=== PATIENT | male | born 1995 | race Caucasian/White ===

== ENCOUNTER 2017-11-12 08:42 | Emergency (ER) | payer BC, OTHER ==
--- NOTE | 2017-11-12 09:42 | UC ---
Throat Pain/Nasal Jacques HPI - HPI Summary HPI Summary: 22 yo male presents with b/l earache, sinus pain/pressure/congestion, sore throat, dry cough, and body aches for the last 2 days. Today he noticed he had a fever. Has been taking claritin and an OTC cold and flu medication with no relief. He says he feels a little nauseous today as well. Denies chills, SOB, chest pain, abdominal pain, vomiting, diarrhea, or dysuria. He is still smoking daily - History of Current Complaint Chief Complaint: UCRespiratory Stated Complaint: CONGESTED,SORE THROAT Time Seen by Provider: 11/12/17 09:41 Hx Obtained From: Patient Onset/Duration: Gradual Onset Severity: Moderate Pain Intensity: 6 Pain Scale Used: 0-10 Numeric Cough: Nonproductive - Allergies/Home Medications Allergies/Adverse Reactions: Allergies Allergy/AdvReac Type Severity Reaction Status Date / Time Penicillins Allergy Swelling Verified 11/12/17 08:55 Home Medications: Home Medications Aspirin/Acetaminophen/Caffeine [Excedrin Migraine Caplet] 1 tab PO DAILY PRN [History Confirmed 11/12/17] D-Methorphan/PE/Acetaminophen [Gnp Day Time Cold/Flu Rel] 1 liq PO DAILY PRN [History Confirmed 11/12/17] PMH/Surg Hx/FS Hx/Imm Hx - Additional Past Medical History Additional PMH: None Previously Healthy: Yes - Surgical History Surgical History: Yes Surgery Procedure, Year, and Place: LEFT CLAVICAL 2010 - Family History Known Family History: Positive: None - Social History Occupation: Employed Full-time Lives: With Family Alcohol Use: None Substance Use Type: Marijuana Substance Use Comment - Amount & Last Used: occasional Smoking Status (MU): Light Every Day Tobacco Smoker Type: Cigarettes Amount Used/How Often: 3 sig/day When Did the Patient Quit Smoking/Using Tobacco: 2 months ago Household Exposure Type: Cigarettes Review of Systems Constitutional: Fever, Fatigue, Other - Body aches Skin: Negative Eyes: Negative ENT: Sore Throat, Ear Ache, Nasal Discharge, Sinus Congestion, Sinus Pain/ Tenderness Respiratory: Cough Cardiovascular: Negative Gastrointestinal: Nausea Genitourinary: Negative Neurovascular: Negative Neurological: Negative Psychological: Negative All Other Systems Reviewed And Are Negative: Yes Physical Exam - Summary Physical Exam Summary: GENERAL: NAD. WDWN. No pain distress. SKIN: No rashes, sores, lesions, or open wounds. HEENT: Head: AT/NC Eyes: EOM intact. Conjunctiva clear without inflammation or discharge. Ears: Hearing grossly normal. B/L TM with mild erythema. No bulging. No canal edema or drainage. Nose: Nasal mucosa mildly swollen and erythematous with yellow/ clear discharge. TTP maxillary < frontal sinus. Throat: Posterior oropharynx without exudates, erythema, or tonsillar enlargement. Uvula midline. NECK: Supple. Nontender. No lymphadenopathy. CHEST: CTAB. No r/r/w. No accessory muscle use. Breathing comfortably and in no distress. CV: RRR. Without m/r/g. Pulses intact. NEURO: Alert. CN II-XII grossly intact. PSYCH: Age appropriate behavior. Triage Information Reviewed: Yes Vital Signs: Initial Vital Signs Temp 100.9 F 11/12/17 08:50 Pulse 89 11/12/17 08:50 Resp 16 11/12/17 08:50 BP 142/69 11/12/17 08:50 Pulse Ox 99 11/12/17 08:50 Laboratory Tests 11/12/17 10:10 Group A Strep Rapid Negative Vital Signs Reviewed: Yes Throat Pain/Nasal Course/Dx - Course Course Of Treatment: CXR: IMPRESSION: NO ACTIVE CARDIOPULMONARY DISEASE. POC strep negative. Suspect sinusitis vs viral illness. Will rx for zpak and zofran and have him f/u if symptoms worsen or persist. - Differential Dx/Diagnosis Provider Diagnoses: Sinusitis Discharge - Sign-Out/Discharge Documenting (check all that apply): Patient Departure All imaging exams completed and their final reports reviewed: Yes - Discharge Plan Condition: Stable Disposition: HOME Prescriptions: Azithromycin TAB* [Zithromax TAB (Z-JAYDEN) 250 mg #6 tabs] 2 tab PO .TODAY, THEN 1 DAILY #1 jayden Ondansetron ODT TAB* [Zofran 4 MG Odt TAB*] 4 mg PO BID PRN #10 tab.odt PRN Reason: Nausea Patient Education Materials: Sinusitis (ED) Forms: *Work Release Referrals: No Primary Care Phys,NOPCP [Primary Care Provider] - Additional Instructions: If you develop a fever, shortness of breath, chest pain, new or worsening symptoms - please call your PCP or go to the ED. Your blood pressure was high at todays visit. Please see your primary provider within 4 weeks for recheck and re-evaluation. - Billing Disposition and Condition Condition: STABLE Disposition: Home
--- NOTE | 2017-11-12 10:42 | RAD ---
HISTORY: cough COMPARISONS: August 10, 2013 VIEWS: 4: Frontal dual-energy and lateral views of the chest. FINDINGS: CARDIOMEDIASTINAL SILHOUETTE: The cardiomediastinal silhouette is normal. JAMIR: The jamir are normal. PLEURA: The costophrenic angles are sharp. No pleural abnormalities are noted. LUNG PARENCHYMA: The lungs are clear. ABDOMEN: The upper abdomen is clear. There is no subphrenic gas. BONES AND SOFT TISSUES: No bone or soft tissue abnormalities are noted. OTHER: None. IMPRESSION: NO ACTIVE CARDIOPULMONARY DISEASE.
[2017-11-12 11:01] VITALS: BP 142/71
== END 2017-11-12 11:02 | disposition home or self-care (01) ==
LOC: UCEAST 08:42
DX: J32.9 Chronic sinusitis, unspecified (principal); F17.210 Nicotine dependence, cigarettes, uncomplicated; Z88.0 Allergy status to penicillin
CPT/HCPCS: 71046; 87651; 99212; G0463

== ENCOUNTER 2017-11-18 14:27 | Emergency (ER) | payer SELFPAY ==
[2017-11-18 14:51] VITALS: BP 118/68
[2017-11-18] MEDS ORDERED: Phenylephrine 1% NASAL* 15 ML BOT BOTH NARES ONE (14:52)
--- NOTE | 2017-11-18 15:17 | UC ---
Epistaxis Nasal HPI - HPI Summary HPI Summary: Pt is a 22 year old male presenting to the with a chief complaint of an epistaxis. The pt says that he woke up around 800 this morning, and while he was getting ready it started suddenly bleeding only on his R side, then it subsided for a while. Around 1030, he was in [employer], and his R nare started bleeding again, and then spread to both sides. The pt denies any nose trauma. The pt is currently not on medications. The pt has a prehypertensive blood pressure, and has had clavicle surgery in the past. He drinks EtOH occasionally , smokes about 3-4 cigarettes on a daily basis, occasionally uses marijuana. The pt has a hx of occasional nosebleeds. - History of Current Complaint Chief Complaint: UCGeneralIllness Stated Complaint: NOSE BLEED Hx Obtained From: Patient Onset/Duration: Sudden Onset, Lasting Hours, Still Present - mildly Timing: Hours - began this morning Severity Initially: Mild Severity Currently: Mild Pain Intensity: 2 Pain Scale Used: 0-10 Numeric Alleviating Factor(s): Pressure - Allergies/Home Medications Allergies/Adverse Reactions: Allergies Allergy/AdvReac Type Severity Reaction Status Date / Time Penicillins Allergy Swelling Verified 11/18/17 16:49 PMH/Surg Hx/FS Hx/Imm Hx Previously Healthy: No Endocrine History: Other Other Endocrine History: pre-hypertensive blood pressure Respiratory History: Other Other Respiratory History: occasional nosebleeds - Surgical History Surgical History: Yes Surgery Procedure, Year, and Place: LEFT CLAVICAL 2010 - Family History Known Family History: Negative: Hypertension, Diabetes - Social History Lives: With Family Alcohol Use: None Substance Use Type: Marijuana Substance Use Comment - Amount & Last Used: occasional Smoking Status (MU): Light Every Day Tobacco Smoker Type: Cigarettes Amount Used/How Often: 3 cig/day Have You Smoked in the Last Year: Yes When Did the Patient Quit Smoking/Using Tobacco: 2 months ago Household Exposure Type: Cigarettes Review of Systems Constitutional: Negative - fever ENT: Epistaxis All Other Systems Reviewed And Are Negative: Yes Physical Exam - Summary Physical Exam Summary: Appearance: Well-appearing, Well-nourished Skin: Warm Eyes: Normal ENT: Small amt blood in bilateral nares. No oropharyngeal blood. Neck: Supple, nontender Respiratory: Clear to auscultation Cardiovascular: Normal S1, S2. No murmurs. Normal distal pulses in tibial and radial bilaterally. Abdomen: Soft, nontender Musculoskeletal: Normal, Strength/ROM Intact Neurological: Normal, A&Ox3 Psychiatric: Normal General: No acute distress Triage Information Reviewed: Yes Vital Signs: Initial Vital Signs Temp 98.4 F 11/18/17 14:46 Pulse 80 11/18/17 14:46 Resp 16 11/18/17 14:46 BP 118/68 11/18/17 14:46 Pulse Ox 95 11/18/17 14:46 Vital Signs Reviewed: Yes Procedures - Procedure Summary Procedure Summary: 1515 right-sided nasal packing using Merocel. Initially successful, however bleeding persisted. Patient tolerated procedure well without occasions. Blood seen to be soaked throughout the dressing. Re-Evaluation - Re-Evaluation 1 Change: Unchanged Comment: Pt now complains of pain on the whole R side of his face and in bilateral ears. The bleeding is continuous, there is no bleeding orally. His sinus is getting currently blocked up. Epistaxis Nasal Course/Dx - Course Course Of Treatment: Patient has persistent right-sided epistaxis despite nasal packing, instructed to report to the emergency department immediately for further care and evaluation for possible posterior bleed vital signs stable, neurologically intact, understands instructions. - Differential Dx/Diagnosis Provider Diagnoses: epistaxis Discharge - Sign-Out/Discharge Documenting (check all that apply): Patient Departure All imaging exams completed and their final reports reviewed: No Studies - Discharge Plan Condition: Stable Disposition: HOME-RECOMMEND TO ED Patient Education Materials: Nosebleed (ED) Referrals: No Primary Care Phys,NOPCP [Primary Care Provider] - Additional Instructions: PLEASE GO STRAIGHT TO EMERGENCY DEPARTMENT AT [facility] - Billing Disposition and Condition Condition: STABLE Disposition: Home-Recommend to ED - Attestation Statements Document Initiated by Scribe: Yes Documenting Scribe: Brandie Castro Provider For Whom Pardeep is Documenting (Include Credential): Jaswinder Driver MD. Scribe Attestation: Brandie Sanchez scribed for Jaswinder Driver MD. on 11/18/17 at 2006. Scribe Documentation Reviewed: Yes Provider Attestation: The documentation as recorded by the Brandie bourne accurately reflects the service I personally performed and the decisions made by Jaswinder desai MD. Consult Consult: 1550 - Consultation with SUN Grimaldo from [facility] about transferring the pt to the ED. They will be accepting him.
== END 2017-11-18 15:55 | disposition home health service (06) ==
LOC: UCEAST 14:27
DX: R04.0 Epistaxis (principal); F17.210 Nicotine dependence, cigarettes, uncomplicated; Z88.0 Allergy status to penicillin
CPT/HCPCS: 30901; 99212; A9270-GY; G0463

== ENCOUNTER 2017-11-18 16:11 | Emergency (ER) | payer SELFPAY ==
[2017-11-18] MEDS ORDERED: Oxymetazoline 0.05% NASAL SPR* 15 ML BTL ONE (17:06)
--- NOTE | 2017-11-18 17:16 | ED ---
Throat Pain/Nasal Congestion - HPI Summary HPI Summary: Pt is a 22 y/o male sent from who presents to [facility] c/o epistaxis. He began having his bilateral nose bleed this morning at 10:30 while walking to [facility], which then became only right sided. He had his right nare packed at the , which he states is very uncomfortable and is making his ear and head hurt. He is slightly hypertensive but is not on medications. He describes the pain as a 6 /10 in severity and aching. - History of Current Complaint Chief Complaint: EDEpistaxis Time Seen by Provider: 11/18/17 17:01 Hx Obtained From: Patient Onset/Duration: Sudden Onset, Lasting Hours - 10:30, Still Present Severity: Moderate Associated Signs And Symptoms: Positive: Nasal Discharge - Epistaxis Cough: None - Allergies/Home Medications Allergies/Adverse Reactions: Allergies Allergy/AdvReac Type Severity Reaction Status Date / Time Penicillins Allergy Swelling Verified 11/18/17 16:49 PMH/Surg Hx/FS Hx/Imm Hx Endocrine/Hematology History: Denies: Hx Diabetes, Hx Thyroid Disease Cardiovascular History: Denies: Hx Congestive Heart Failure, Hx Hypertension, Hx Pacemaker/ICD Respiratory History: Denies: Hx Asthma, Hx Chronic Obstructive Pulmonary Disease (COPD) GI History: Denies: Hx Ulcer History: Denies: Hx Dialysis, Hx Renal Disease Musculoskeletal History: Reports: Other Musculoskeletal History - 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 Sensory History: Denies: Hx Hearing Aid Psychiatric History: Denies: Hx Panic Disorder - Surgical History Surgery Procedure, Year, and Place: LEFT CLAVICAL 2010 - Immunization History Immunizations Up to Date: Yes Infectious Disease History: No Infectious Disease History: Denies: Hx Hepatitis, Hx Human Immunodeficiency Virus (HIV), Traveled Outside the [place] in Last 30 Days - Family History Known Family History: Negative: Hypertension, Diabetes - Social History Alcohol Use: None Hx Substance Use: Yes Substance Use Type: Reports: Marijuana Substance Use Comment - Amount & Last Used: occasional Hx Tobacco Use: Yes Smoking Status (MU): Light Every Day Tobacco Smoker Type: Cigarettes Amount Used/How Often: 3 cig/day Have You Smoked in the Last Year: Yes Review of Systems Negative: Fever Positive: Epistaxis All Other Systems Reviewed And Are Negative: Yes Physical Exam - Summary Physical Exam Summary: Appearance: Well appearing, no pain distress Skin: warm, dry, reflects adequate perfusion Head/face: normal Eyes: EOMI, BRIANA ENT: bleeding from right nostril, no active bleeding of posterior pharynx Neck: supple, non-tender Respiratory: CTA, breath sounds present Cardiovascular: RRR, pulses symmetrical Abdomen: non-tender, soft Bowel: present Musculoskeletal: normal, strength/ROM intact Neuro: normal, sensory motor intact, A&Ox3 Triage Information Reviewed: Yes Vital Signs On Initial Exam: Initial Vitals Temp Pulse Resp BP Pulse Ox 98.4 F 80 18 140/86 98 11/18/17 16:22 11/18/17 16:22 11/18/17 16:22 11/18/17 16:22 11/18/17 16:22 Vital Signs Reviewed: Yes Procedures - Procedure Summary Procedure Summary: Right nostril nasal rocket with Afrin and Lidocaine. Diagnostics - Vital Signs Vital Signs Temp Pulse Resp BP Pulse Ox 11/18/17 16:22 98.4 F 80 18 140/86 98 - Laboratory Result Diagrams: 11/18/17 17:29 11/18/17 17:29 Lab Statement: Any lab studies that have been ordered have been reviewed, and results considered in the medical decision making process. EENT Course/Dx - Course Course Of Treatment: Pt is a 22 y/o male sent from who presents to [facility] c/o epistaxis. He began having his bilateral nose bleed this morning at 10:30, which then became only right sided. He had his right nare packed at the , which he states is very uncomfortable and is making his ear and head hurt. He is slightly hypertensive but is not on medications. He describes the pain as a 6 /10 in severity and aching. A physical exam revealed bleeding from right nostril , no active bleeding of posterior pharynx. A right nostril nasal rocket procedure was performed. Final dx is epistaxis. Pt is discharged and to follow up with ENT tomorrow. Pt is agreeable with this plan. - Diagnoses Provider Diagnoses: Epistaxis Discharge - Sign-Out/Discharge Documenting (check all that apply): Patient Departure - Discharge - Discharge Plan Condition: Stable Disposition: HOME Prescriptions: Sulfamethox/Trimethoprim DS* [Bactrim DS 800/160 TAB*] 1 tab PO BID #14 tab Patient Education Materials: Nosebleed (ED) Referrals: [facility] [Outside] Miles Javier MD [Medical Doctor] - 1 Day Additional Instructions: RETURN TO THE ED WITH ANY NEW OR WORSENING SYMPTOMS. - Billing Disposition and Condition Condition: STABLE Disposition: Home - Attestation Statements Document Initiated by Scribe: Yes Documenting Scribe: Gissel Rhodes Provider For Whom Scribe is Documenting (Include Credential): Barry Ashley MD Scribe Attestation: Gissel Sanchez scribed for Barry Ashley MD on 11/18/17 at 1839. Scribe Documentation Reviewed: Yes Provider Attestation: The documentation as recorded by the Gissel bourne accurately reflects the service I personally performed and the decisions made by , Barry Ashley MD
[2017-11-18 17:35] LABS: ABS Basophils 0.1 10^3/ul (0-0.2); ABS Eosinophils 0.3 10^3/ul (0-0.6); ABS Lymphocytes 1.4 10^3/ul (1.0-4.8); ABS Monocytes 0.7 10^3/ul (0-0.8); ABS Neutrophils 9.3 10^3/ul (1.5-7.7); ABS Nucleated RBC 0 10^3/ul; Eosinophil % 2.5 % (0-6); Hematocrit 42 % (42-52); Hemoglobin 14.1 g/dl (14.0-18.0); Lymphocyte % 11.9 % (25-47); Mean Corpuscular HGB Conc 34 g/dl (31-36); Mean Corpuscular Hemoglobin 31 pg (27-31); Mean Corpuscular Volume 90 fL (80-94); Mean Platelet Volume 8.1 um3 (7.4-10.4); Nucleated Red Blood Cells % 0.1; Platelet Count 398 10^3/ul (150-450); Red Blood Count 4.62 10^6/ul (4.00-5.40); Red Cell Distribution Width 13 % (10.5-15); White Blood Count 11.8 10^3/ul (3.5-10.8)
[2017-11-18 17:50] LABS: INR 1.09 (0.77-1.02)
[2017-11-18 17:59] LABS: EGFR Non-African American 97.4 (>60)
[2017-11-18 18:30] VITALS: BP 120/67
== END 2017-11-18 18:29 | disposition home or self-care (01) ==
LOC: ED 16:11
DX: R04.0 Epistaxis (principal); Z88.0 Allergy status to penicillin; F17.210 Nicotine dependence, cigarettes, uncomplicated
CPT/HCPCS: 30901; 36415; 80053; 85025; 85610; 85730; 99282; A9270-GY

== ENCOUNTER 2017-11-19 01:36 | Emergency (ER) | payer SELFPAY ==
--- NOTE | 2017-11-19 02:23 | ED ---
Throat Pain/Nasal Congestion - HPI Summary HPI Summary: A 22 y/o male presents to ED c/o epistaxis reaching 4/10 in severity. Currently , the patient is bleeding from both sides of his nostrils. In the ED room, the patient has a pulse of 88 BPM, O2 saturation of 96% and blood pressure of 128/ 76. As per triage, "Pt c/o nosebleed since earlier tonight. Pt seen in this ED and rhino rocket placed. Bleeding not controlled at this time". According to the patient, he was in [facility] earlier today for epistaxis on the right side and it stopped for a bit, however, now he is bleeding on both sides of his nose. He noted that he went to earlier, but then came here. He stated that blood is "pouring down his throat". - History of Current Complaint Chief Complaint: EDEpistaxis Time Seen by Provider: 11/19/17 02:13 Hx Obtained From: Patient Onset/Duration: Sudden Onset, Lasting Hours, Still Present, Worse Since Severity: Moderate - 4/10 Cough: None - Allergies/Home Medications Allergies/Adverse Reactions: Allergies Allergy/AdvReac Type Severity Reaction Status Date / Time Penicillins Allergy Swelling Verified 11/19/17 01:44 PMH/Surg Hx/FS Hx/Imm Hx Endocrine/Hematology History: Denies: Hx Diabetes, Hx Thyroid Disease Cardiovascular History: Denies: Hx Congestive Heart Failure, Hx Hypertension, Hx Pacemaker/ICD Respiratory History: Denies: Hx Asthma, Hx Chronic Obstructive Pulmonary Disease (COPD) GI History: Denies: Hx Ulcer History: Denies: Hx Dialysis, Hx Renal Disease Musculoskeletal History: Reports: Other Musculoskeletal History - 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 Sensory History: Denies: Hx Hearing Aid Psychiatric History: Denies: Hx Panic Disorder - Surgical History Surgery Procedure, Year, and Place: LEFT CLAVICAL 2010 Infectious Disease History: No Infectious Disease History: Denies: Hx Hepatitis, Hx Human Immunodeficiency Virus (HIV), Traveled Outside the [place] in Last 30 Days - Family History Known Family History: Negative: Hypertension, Diabetes - Social History Alcohol Use: None Hx Substance Use: Yes Substance Use Type: Reports: Marijuana Substance Use Comment - Amount & Last Used: occasional Hx Tobacco Use: Yes Smoking Status (MU): Light Every Day Tobacco Smoker Type: Cigarettes Amount Used/How Often: 3 cig/day Have You Smoked in the Last Year: Yes Review of Systems Negative: Fever Positive: Epistaxis - Both sides All Other Systems Reviewed And Are Negative: Yes Physical Exam - Summary Physical Exam Summary: VITAL SIGNS: Reviewed. GENERAL: Patient is a well-developed and nourished male who is lying comfortable in the stretcher. Patient is not in any acute respiratory distress. HEAD AND FACE: No signs of trauma. No ecchymosis, hematomas or skull depressions. No sinus tenderness. EYES: PERRLA, EOMI x 2, No injected conjunctiva, no nystagmus. EARS: Hearing grossly intact. Ear canals and tympanic membranes are within normal limits. MOUTH: Oropharynx within normal limits. NOSE: Rhinorrhea of left nostril with no active bleeding. Does have some oozing. Rhinorocket right nostril. NECK: Supple, trachea is midline, no adenopathy, no JVD, no carotid bruit, no c- spine tenderness, neck with full ROM. CHEST: Symmetric, no tenderness at palpation LUNGS: Clear to auscultation bilaterally. No wheezing or crackles. CVS: Regular rate and rhythm, S1 and S2 present, no murmurs or gallops appreciated. ABDOMEN: Soft, non-tender. No signs of distention. No rebound no guarding, and no masses palpated. Bowel sounds are normal. EXTREMITIES: FROM in all major joints, no edema, no cyanosis or clubbing. NEURO: Alert and oriented x 3. No acute neurological deficits. Speech is normal and follows commands. SKIN: Dry and warm Triage Information Reviewed: Yes Vital Signs On Initial Exam: Initial Vitals Temp Pulse Resp BP Pulse Ox 98.2 F 92 18 128/78 96 11/19/17 01:42 11/19/17 01:42 11/19/17 01:42 11/19/17 01:42 11/19/17 01:42 Vital Signs Reviewed: Yes Procedures - Laceration/Wound Repair Nostrils Location: face - Nose Length, Depth and Shape: Old Rhinorocket was removed from left nostril. 4.5 cm rhinorockets were used in both nostrils. Each nostril had good hemostasis. Diagnostics - Vital Signs Vital Signs Temp Pulse Resp BP Pulse Ox 11/19/17 01:42 98.2 F 92 18 128/78 96 - Laboratory Lab Statement: Any lab studies that have been ordered have been reviewed, and results considered in the medical decision making process. EENT Course/Dx - Course Course Of Treatment: A 22 y/o male presents to ED c/o epistaxis reaching 4/10 in severity. Currently, the patient is bleeding from both sides of his nostrils. In the ED room, the patient has a pulse of 88 BPM, O2 saturation of 96 % and blood pressure of 128/76. No laboratory scans were done. No blood work was done. Removal of old rhinorocket from left nostril was done. 4.5 cm rhinorockets were used in both sides. Each nostril had good hemostasis. Patient will be discharged with a diagnosis of Epistaxis. Patient will be sent home with Percocet. Patient is to follow up with ENT tomorrow. Patient is agreeable with this plan. - Diagnoses Provider Diagnoses: Epistaxis Discharge - Sign-Out/Discharge Documenting (check all that apply): Patient Departure - DISCHARGE - Discharge Plan Condition: Stable Disposition: HOME Prescriptions: oxyCODONE/Acetamin 5/325 MG* [Percocet 5/325 TAB*] 1 tab PO Q6H PRN #14 tab MDD 4 PRN Reason: Pain Patient Education Materials: Nosebleed (ED) Referrals: Gee Hameed MD [Medical Doctor] - 1 Day Additional Instructions: FOLLOW UP WITH ENT TOMORROW. TAKE MEDICATION PRESCRIBED. RETURN TO ED FOR ANY NEW OR WORSENING SYMPTOMS. - Attestation Statements Document Initiated by Scribe: Yes Documenting Scribe: Florentin Irwin Provider For Whom Gile is Documenting (Include Credential): Liseth Roberto Attestation: Florentin Sanchez, giled for Hernesto Rosales on 11/19/17 at 0329.
[2017-11-19] MEDS ORDERED: Lidocaine 2% JELLY* 6 ML JELLY TOPICAL ONE (02:24)
[2017-11-19] MEDS ORDERED: Lidocaine 2% JELLY* 10 ML JELLY TOPICAL ONE (02:35)
[2017-11-19] MEDS ORDERED: oxyCODONE/Acetamin 5/325 MG* TAB PO ONE (02:38)
[2017-11-19 04:03] VITALS: BP 139/89
== END 2017-11-19 04:02 | disposition home or self-care (01) ==
LOC: ED 01:36
DX: R04.0 Epistaxis (principal); Z88.0 Allergy status to penicillin; F17.210 Nicotine dependence, cigarettes, uncomplicated
CPT/HCPCS: 30901; 99283; A9270-GY

== ENCOUNTER 2018-01-08 14:46 | Emergency (ER) | payer OTHER ==
--- NOTE | 2018-01-08 15:08 | UC ---
Hand/Wrist HPI - HPI Summary HPI Summary: 22 yo male presents with right ring finger pain. He tells me that 2 days ago the area became red and swollen - he thought it was an infected hair. Has been trying to squeeze the site with mild clear/yellow drainage. Yesterday at work he was using a drill and the drill spun and hit his right hand and this same finger. Today his finger is much worse - increased redness, pain, and swelling. - History Of Current Complaint Stated Complaint: FINGER INJURY WC Time Seen by Provider: 01/08/18 15:08 Hx Obtained From: Patient Onset/Duration: Gradual Onset Severity Initially: Moderate Severity Currently: Severe Pain Intensity: 9 Pain Scale Used: 0-10 Numeric - Allergies/Home Medications Allergies/Adverse Reactions: Allergies Allergy/AdvReac Type Severity Reaction Status Date / Time Penicillins Allergy Swelling Verified 01/08/18 15:12 Home Medications: Home Medications Loratadine [Claritin 10 MG CAP] 1 tab PO DAILY 01/08/18 [History Confirmed 01/08] PMH/Surg Hx/FS Hx/Imm Hx - Additional Past Medical History Additional PMH: None - Surgical History Surgical History: Yes Surgery Procedure, Year, and Place: LEFT CLAVICAL 2010 - Family History Known Family History: Negative: Hypertension, Diabetes - Social History Occupation: Employed Full-time Lives: With Family Alcohol Use: None Substance Use Type: Marijuana Substance Use Comment - Amount & Last Used: occasional Smoking Status (MU): Light Every Day Tobacco Smoker Type: Cigarettes Amount Used/How Often: 3 cig/day Have You Smoked in the Last Year: Yes When Did the Patient Quit Smoking/Using Tobacco: 2 months ago Household Exposure Type: Cigarettes Review of Systems Constitutional: Negative Skin: Other - Cellulitis right ring finger Respiratory: Negative Cardiovascular: Negative Neurovascular: Negative Musculoskeletal: Other: - Right hand pain Neurological: Negative Psychological: Negative All Other Systems Reviewed And Are Negative: Yes Physical Exam - Summary Physical Exam Summary: GENERAL: NAD. WDWN. No pain distress. SKIN: RIGHT RING FINGER: Moderate edema and erythema at proximal phalanx with 2mm area of clear/yellow drainage. Moderate TTP and warmth. CHEST: No accessory muscle use. Breathing comfortably and in no distress. CV: Pulses intact radial and ulnar. Cap refill <2seconds MSK: RIGHT HAND: Mild TTP over 2-4th MCPs. Right ring finger: with findings as above. Unable to fully flex or extend due to pain. NEURO: Alert. Sensations intact hand and all fingers. PSYCH: Age appropriate behavior. Triage Information Reviewed: Yes Vital Signs: Vital Signs: Temp Pulse Resp BP Pulse Ox 98.8 F 83 18 135/67 99 01/08/18 15:11 01/08/18 15:11 01/08/18 15:11 01/08/18 15:11 01/08/18 15:11 Vital Signs Reviewed: Yes Hand/Wrist Course/Dx - Course Course Of Treatment: XR:IMPRESSION: NO ACUTE OSSEOUS INJURY. IF SYMPTOMS PERSIST, RECOMMEND REPEAT IMAGING. Scant discharge was able to be expressed from the right ring finger and a culture was obtained. He is asking for a note off of work - advised that I can take him out of work tomorrow, but he is attempting to file this as worker's comp due to his drill injury. Due to this, will need to f/u with Dr. Campbell for further determination of work status. Pt agreeable to plan. - Differential Dx/Diagnosis Provider Diagnoses: Right ring finger cellulitis. Right hand pain Discharge - Sign-Out/Discharge Documenting (check all that apply): Patient Departure All imaging exams completed and their final reports reviewed: Yes - Discharge Plan Condition: Stable Disposition: HOME Prescriptions: Clindamycin HCl 300 mg PO TID #21 capsule Naproxen [Naproxen 500 mg tab] 500 mg PO BID PRN #30 tablet.dr YEPEZ Reason: Pain Patient Education Materials: Cellulitis (DC) Forms: *Work Release Referrals: No Primary Care Phys,NOPCP [Primary Care Provider] - Matthew Campbell MD [Medical Doctor] - As Soon As Possible Additional Instructions: If you develop a fever, shortness of breath, chest pain, new or worsening symptoms - please call your PCP or go to the ED. 1) Apply ice to your finger to reduce pain and swelling 2) If your symptoms do not improve in 2-3 days, please be rechecked 3) Please follow up with Dr. Campbell at the number below to determine your work status - Billing Disposition and Condition Condition: STABLE Disposition: Home
[2018-01-08 15:16] VITALS: BP 135/67
--- NOTE | 2018-01-08 15:44 | RAD ---
HISTORY: Pain 2-4 MCP COMPARISONS: April 11, 2007 VIEWS: 4 , Frontal, lateral, and oblique views of the right hand FINDINGS: BONE DENSITY: Normal. BONES: There is no displaced fracture. JOINTS: There is no arthropathy. ALIGNMENT: There is no dislocation. SOFT TISSUES: Unremarkable. OTHER FINDINGS: None. IMPRESSION: NO ACUTE OSSEOUS INJURY. IF SYMPTOMS PERSIST, RECOMMEND REPEAT IMAGING.
--- NOTE | 2018-01-10 13:28 | UC ---
- Progress Note Progress Note: Wound culture + MRSA. Patient was prescribed clindamycin which should cover for this infection. Please make follow up call to make sure patient started antibiotic and that symptoms are improving. Discharge - Sign-Out/Discharge Documenting (check all that apply): Post-Discharge Follow Up All imaging exams completed and their final reports reviewed: Yes - Discharge Plan Condition: Stable Disposition: HOME Prescriptions: Clindamycin HCl 300 mg PO TID #21 capsule Naproxen [Naproxen 500 mg tab] 500 mg PO BID PRN #30 tablet.dr YEPEZ Reason: Pain Patient Education Materials: Cellulitis (DC) Forms: *Work Release Referrals: Matthew Campbell MD [Medical Doctor] - As Soon As Possible No Primary Care Phys,NOPCP [Primary Care Provider] - Additional Instructions: If you develop a fever, shortness of breath, chest pain, new or worsening symptoms - please call your PCP or go to the ED. 1) Apply ice to your finger to reduce pain and swelling 2) If your symptoms do not improve in 2-3 days, please be rechecked 3) Please follow up with Dr. Campbell at the number below to determine your work status - Billing Disposition and Condition Condition: STABLE Disposition: Home
== END 2018-01-08 16:15 | disposition home or self-care (01) ==
LOC: UCEAST 14:46
DX: L03.011 Cellulitis of right finger (principal); M79.641 Pain in right hand
CPT/HCPCS: 87070; 87077; 87186; 87205; 87640; 87641; 99212; G0463

== ENCOUNTER 2018-05-09 15:51 | Emergency (ER) | payer SELFPAY ==
[2018-05-09 16:03] VITALS: BP 129/72
[2018-05-09] MEDS ORDERED: Ibuprofen TAB* 600 MG PO ONE (16:51)
[2018-05-09] MEDS ORDERED: Acetaminophen TAB* 325 MG PO ONE (16:51)
--- NOTE | 2018-05-09 17:03 | ED ---
Influenza-Like Illness - HPI Summary HPI Summary: 22-year-old male smoker presents with 3 weeks of cough now complicated by bilateral low chest discomfort with coughing. He denies any fever however he measured 102.4 here. He has some body aches and chills but denies sweats. He has been coughing up "phlegm". He denies any upper respiratory symptoms to include nasal congestion, ear pain, sore throat. His son had croup a few weeks ago but nobody else has been acutely ill. - History of Current Complaint Chief Complaint: UCGeneralIllness Time Seen by Provider: 05/09/18 16:44 Hx Obtained From: Patient - Allergy/Home Medications Allergies/Adverse Reactions: Allergies Allergy/AdvReac Type Severity Reaction Status Date / Time Penicillins Allergy Swelling Verified 05/09/18 16:03 PMH/Surg Hx/FS Hx/Imm Hx Previously Healthy: Yes Endocrine/Hematology History: Denies: Hx Diabetes, Hx Thyroid Disease Cardiovascular History: Denies: Hx Congestive Heart Failure, Hx Hypertension, Hx Pacemaker/ICD Respiratory History: Denies: Hx Asthma, Hx Chronic Obstructive Pulmonary Disease (COPD) GI History: Denies: Hx Ulcer History: Denies: Hx Dialysis, Hx Renal Disease Musculoskeletal History: Reports: Other Musculoskeletal History - 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 Sensory History: Denies: Hx Hearing Aid Psychiatric History: Denies: Hx Panic Disorder - Surgical History Surgery Procedure, Year, and Place: LEFT CLAVICAL 2010 Infectious Disease History: No Infectious Disease History: Denies: Hx Hepatitis, Hx Human Immunodeficiency Virus (HIV), Traveled Outside the [place] in Last 30 Days - Family History Known Family History: Positive: Other - croup in his son 2 weeks ago Negative: Hypertension, Diabetes - Social History Lives: With Family Alcohol Use: None Hx Substance Use: Yes Substance Use Type: Reports: Marijuana Substance Use Comment - Amount & Last Used: occasional Hx Tobacco Use: Yes Smoking Status (MU): Smoker, Current Status Unknown Type: Cigarettes Amount Used/How Often: 3 cig/day Have You Smoked in the Last Year: Yes Review of Systems Positive: Fever, Chills Eyes: Negative Positive: Sore Throat, Nasal Discharge Positive: Chest Pain Positive: Cough. Negative: Shortness Of Breath Gastrointestinal: Negative Negative: Myalgia, Decreased ROM Negative: Rash All Other Systems Reviewed And Are Negative: Yes Physical Exam Triage Information Reviewed: Yes Vital Signs On Initial Exam: Initial Vitals Temp Pulse Resp BP Pulse Ox 102.4 F 103 16 129/72 98 05/09/18 15:59 05/09/18 15:59 05/09/18 15:59 05/09/18 15:59 05/09/18 15:59 Vital Signs Reviewed: Yes Appearance: Positive: Well-Appearing, No Pain Distress, Well-Nourished Skin: Positive: Warm, Dry Head/Face: Positive: Normal Head/Face Inspection Eyes: Positive: EOMI ENT: Positive: Pharynx normal, TMs normal. Negative: Nasal congestion, Nasal drainage, Sinus tenderness Neck: Positive: Supple, Nontender, No Lymphadenopathy Respiratory/Lung Sounds: Positive: Other - Decreased breath sounds in the bases without wheeze rale or rhonchi. No respiratory distress. Cardiovascular: Positive: Tachycardia Abdomen Description: Positive: Nontender, Soft Musculoskeletal: Positive: Strength/ROM Intact Neurological: Positive: Alert, Oriented to Person Place, Time Psychiatric: Positive: Normal Diagnostics - Vital Signs Vital Signs Temp Pulse Resp BP Pulse Ox 05/09/18 16:50 100.2 F 05/09/18 15:59 102.4 F 103 16 129/72 98 - Laboratory Diagnostic Studies Comment: INFLUENZA: NEG Lab Statement: Any lab studies that have been ordered have been reviewed, and results considered in the medical decision making process. - Radiology cxr Radiology Interpretation Completed By: Radiologist - Left lower lobe infiltrate Flu Symptom Course/Dx - Course Course Of Treatment: Nurse's notes reviewed. Patient with worsening cough over several weeks now with fever and low chest discomfort. Left lower lobe infiltrate on x-ray. No distress. Tylenol, ibuprofen given. Start Levaquin and follow-up with [facility]. - Diagnoses Differential Diagnosis/HQI/PQRI: Positive: Bronchitis, Influenza, Pneumonia, Upper Respiratory Infection Provider Diagnoses: Community acquired pneumonia Discharge - Sign-Out/Discharge Documenting (check all that apply): Patient Departure All imaging exams completed and their final reports reviewed: Yes - Discharge Plan Condition: Improved Disposition: HOME Prescriptions: Albuterol HFA INHALER* [Ventolin HFA Inhaler*] 2 puff INH Q4H PRN #1 mdi PRN Reason: Sob/Wheezing guaiFENesin [Mucinex] 600 mg PO TID #30 tab.er.12h Levofloxacin TAB* [Levaquin TAB*] 750 mg PO DAILY #7 tab Patient Education Materials: Community Acquired Pneumonia (ED) Forms: *Work Release Referrals: [facility] [Outside] [facility] [Outside] Additional Instructions: Call for an appointment on Saturday morning to follow-up with the [facility]. Do not smoke. Humidifier at the bedside. Tylenol, ibuprofen as needed for fever. Return to the ER with difficulty breathing, unable to keep down fluids, worse, new symptoms or other concerns. - Billing Disposition and Condition Condition: IMPROVED Disposition: Home - Attestation Statements Document Initiated by Scribe: No
[2018-05-09 17:37] LABS: Influenza A Molecular NEGATIVE (Negative); Influenza B Molecular NEGATIVE (Negative)
[2018-05-09] MEDS ORDERED: HYDROcodone/ACETAMIN 5-325 MG* 1 TAB PO ONE (17:53)
== END 2018-05-09 18:04 | disposition home or self-care (01) ==
LOC: UCEAST 15:51
DX: J18.9 Pneumonia, unspecified organism (principal); F17.210 Nicotine dependence, cigarettes, uncomplicated; Z88.0 Allergy status to penicillin
CPT/HCPCS: 71046; 99212; A9270-GY; G0463

== ENCOUNTER 2018-09-27 16:26 | Emergency (ER) | payer OTHER ==
--- NOTE | 2018-09-27 17:00 | ED ---
HPI Chest Pain - HPI Summary HPI Summary: A 23 y/o male brought in by [facility] ambulance presents to [facility] with a chief complaint of CP today. He notes that he was changing the tires of a car when he experienced CP and SOB. He was sitting in an upright position and said that he had room spinning dizziness and nausea, but no vomiting. He says that his pain started out in the middle of his chest but he now has a pressure across his whole chest. At triage he rated his pain as a 9/10 in severity. He claims that he only had one doctor tell him he had high blood pressure back in 2016 and no other doctor has noticed it. He denies a Hx of HTN or cardiac disease. - History of Current Complaint Chief Complaint: EDChestPainROMI Time Seen by Provider: 09/27/18 16:42 Hx Obtained From: Patient, EMS Onset/Duration: Started Minutes Ago, Still Present Timing: Constant, Lasting Minutes Initial Severity: Severe Current Severity: Severe Pain Intensity: 9 Pain Scale Used: 0-10 Numeric Chest Pain Location: Diffuse Chest Pain Radiates: No Character: Pressure/Squeezing Aggravating Factor(s): Nothing Alleviating Factor(s): Nothing Associated Signs and Symptoms: Positive: Nausea. Negative: Fever, Vomiting - Allergy/Home Medications Allergies/Adverse Reactions: Allergies Allergy/AdvReac Type Severity Reaction Status Date / Time Penicillins Allergy Swelling Verified 05/09/18 16:03 PMH/Surg Hx/FS Hx/Imm Hx Endocrine/Hematology History: Denies: Hx Diabetes, Hx Thyroid Disease Cardiovascular History: Denies: Hx Congestive Heart Failure, Hx Hypertension, Hx Pacemaker/ICD, Other Cardiovascular Problems/Disorders Respiratory History: Denies: Hx Asthma, Hx Chronic Obstructive Pulmonary Disease (COPD), Other Respiratory Problems/Disorders GI History: Denies: Hx Ulcer History: Denies: Hx Dialysis, Hx Renal Disease Musculoskeletal History: Reports: Other Musculoskeletal History - 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 Sensory History: Denies: Hx Hearing Aid Psychiatric History: Denies: Hx Panic Disorder - Surgical History Surgery Procedure, Year, and Place: LEFT CLAVICAL 2010 Infectious Disease History: No Infectious Disease History: Denies: Hx Hepatitis, Hx Human Immunodeficiency Virus (HIV), Traveled Outside the [place] in Last 30 Days - Family History Known Family History: Positive: Other - croup in his son 2 weeks ago Negative: Hypertension, Diabetes - Social History Alcohol Use: None Hx Substance Use: Yes Substance Use Type: Reports: Marijuana Substance Use Comment - Amount & Last Used: occasional Hx Tobacco Use: Yes Smoking Status (MU): Smoker, Current Status Unknown Type: Cigarettes Amount Used/How Often: 3 cig/day Have You Smoked in the Last Year: Yes Review of Systems Negative: Fever Positive: Chest Pain Positive: Shortness Of Breath Positive: Nausea. Negative: Vomiting Neurological: Other - positive: room spinning dizziness All Other Systems Reviewed And Are Negative: Yes Physical Exam - Summary Physical Exam Summary: VITAL SIGNS: Reviewed. GENERAL: Patient is a well-developed and nourished MALE who is lying comfortable in the stretcher. Patient is not in any acute respiratory distress. HEAD AND FACE: No signs of trauma. No ecchymosis, hematomas or skull depressions. No sinus tenderness. EYES: PERRLA, EOMI x 2, No injected conjunctiva, no nystagmus. EARS: Hearing grossly intact. Ear canals and tympanic membranes are within normal limits. MOUTH: Oropharynx within normal limits. NECK: Supple, trachea is midline, no adenopathy, no JVD, no carotid bruit, no c- spine tenderness, neck with full ROM. CHEST: Symmetric, reproducible chest pain. LUNGS: Clear to auscultation bilaterally. No wheezing or crackles. CVS: Regular rate and rhythm, S1 and S2 present, no murmurs or gallops appreciated. ABDOMEN: Soft, non-tender. No signs of distention. No rebound, no guarding, and no masses palpated. Bowel sounds are normal. EXTREMITIES: FROM in all major joints, no edema, no cyanosis or clubbing. NEURO: Alert and oriented x 3. No acute neurological deficits. Speech is normal and follows commands. SKIN: Dry and warm. Triage Information Reviewed: Yes Vital Signs On Initial Exam: Initial Vitals Temp Pulse Resp BP Pulse Ox 98.5 F 66 16 146/88 99 09/27/18 16:39 09/27/18 16:39 09/27/18 16:39 09/27/18 16:39 09/27/18 16:39 Vital Signs Reviewed: Yes Diagnostics - Vital Signs Vital Signs Temp Pulse Resp BP Pulse Ox 09/27/18 16:39 98.5 F 66 16 146/88 99 - Laboratory Result Diagrams: 09/27/18 16:50 09/27/18 16:49 Lab Statement: Any lab studies that have been ordered have been reviewed, and results considered in the medical decision making process. - Radiology CXR Radiology Interpretation Completed By: Radiologist Summary of Radiographic Findings: No radiographic evidence for acute cardiopulmonary abnormality on this. portable chest x-ray. ED physician has reviewed this imaging report. - EKG 16:32 Cardiac Rate: Bradycardia - 59 bpm EKG Rhythm: Sinus Bradycardia Summary of EKG Findings: EKG at 16:32 showed sinus bradycardia at 59 bpm, no ST elevations, normal axis. Chest Pain Course/Dx - Course Assessment/Plan: A 23 y/o male brought in by [facility] ambulance presents to [facility] with a chief complaint of CP today. He notes that he was changing the tires of a car when he experienced CP and SOB. He was sitting in an upright position and said that he had room spinning dizziness and nausea, but no vomiting. He says that his pain started out in the middle of his chest but he now has a pressure across his whole chest. At triage he rated his pain as a 9/10 in severity. He claims that he only had one doctor tell him he had high blood pressure back in 2016 and no other doctor has noticed it. He denies a Hx of HTN or cardiac disease. Blood tests without any significant abnormality except for Hgb 13.9, glucose of 106, and troponin 0.00. EKG shows a normal sinus rhythm without ST elevation. Chest x-ray impression: No radiographic evidence for acute cardiopulmonary abnormality. In the ED course the patient has a reproducible chest pain therefore the patient was given Toradol. After the patient was given the medication the symptoms have significantly improved. Heart score is equal to 1 therefore did not believe that the patient had acute coronary syndrome. I believe that the patient has a normal skull skeletal pain. . Patient reports that all symptoms have resolved. Because the patient has no significant comorbidities and no family history of cardiovascular disease at his age the patient will be discharged home with follow up of PCP. I discussed all the findings and test results with the patient. Patient was instructed to return to the emergency room immediately if any of the symptoms return or worsens. Patient understands and agrees. Plan of care was discussed with the patient and patient understands and agrees. All questions were answered at patient satisfaction. There were no further complaints or concerns. PE before discharge: CVS: S1 and S2 present. No murmurs appreciated. Abdominal exam before discharge: Soft, non-tender. No signs of distention. No rebound no guarding, and no masses palpated. Bowel sounds are normal. Patient is alert and oriented x 3. Patient is hemodynamically stable. - Diagnoses Provider Diagnoses: Chest pain Discharge - Sign-Out/Discharge Documenting (check all that apply): Patient Departure - DC Patient Received Moderate/Deep Sedation with Procedure: No - Discharge Plan Condition: Stable Disposition: HOME Prescriptions: Ibuprofen TAB* [Motrin TAB* 800 MG] 800 mg PO Q8H #30 tab Patient Education Materials: Chest Pain (DC) Referrals: [facility] [Outside] (2-3 days) Additional Instructions: FOLLOW UP WITH YOUR PRIMARY CARE PROVIDER. RETURN TO THE ED FOR ANY WORSENING OR NEW SYMPTOMS. - Billing Disposition and Condition Condition: STABLE Disposition: Home - Attestation Statements Document Initiated by Scribe: Yes Documenting Scribe: Joe Dewey Provider For Whom Scribe is Documenting (Include Credential): Shalom Bill MD Scribe Attestation: Joe Sanchez scribed for Shalom Bill MD on 09/28/18 at 1123. Scribe Documentation Reviewed: Yes Provider Attestation: The documentation as recorded by the Joe bourne accurately reflects the service I personally performed and the decisions made by Shalom desai MD Status of Scribe Document: Ready
[2018-09-27 17:01] LABS: ABS Lymphocytes 1.3 10^3/ul (1.0-4.8); ABS Monocytes 0.5 10^3/ul (0-0.8); ABS Neutrophils 4.7 10^3/ul (1.5-7.7); Eosinophil % 0.4 %; Hematocrit 42 % (42-52); Hemoglobin 13.9 g/dL (14.0-18.0); Lymphocyte % 19.9 %; Mean Corpuscular HGB Conc 33 g/dL (31-36); Mean Corpuscular Hemoglobin 30 pg (27-31); Mean Corpuscular Volume 91 fL (80-94); Mean Platelet Volume 8.5 fL (7.4-10.4); Platelet Count 204 10^3/uL (150-450); Red Blood Count 4.62 10^6 /uL (4.18-5.48); Red Cell Distribution Width 14 % (10-15); White Blood Count 6.7 10^3/uL (3.5-10.8)
[2018-09-27 17:21] LABS: Albumin 4.9 g/dL (3.2-5.2); Albumin/Globulin Ratio 2.5 (1-3); BUN/Creatinine Ratio 11.8 (8-20); Calcium 9.6 mg/dL (8.6-10.3); EGFR African American 98.7 (>60); EGFR Non-African American 81.6 (>60); Magnesium 2.3 mg/dL (1.9-2.7); Potassium 3.5 mmol/L (3.5-5.0); Total Bilirubin 0.6 mg/dL (0.2-1.0); Total Protein 6.9 g/dL (6.4-8.9)
[2018-09-27 17:26] LABS: CKMB ng/mL 1.2 ng/mL (0.6-6.3)
[2018-09-27] MEDS ORDERED: Ketorolac INJ* 30 MG/ML 1 ML VIAL IV PUSH ONE (18:23)
[2018-09-27] MEDS ORDERED: Ketorolac INJ* 60 MG/2 ML VIAL IM ONE (18:29)
[2018-09-27 18:37] LABS: TSH (Thyroid Stimulating Horm) 0.95 mcIU/mL (0.34-5.60)
[2018-09-27 19:07] VITALS: BP 144/76
== END 2018-09-27 19:06 | disposition home or self-care (01) ==
LOC: ED 16:26
DX: R07.9 Chest pain, unspecified (principal); F17.210 Nicotine dependence, cigarettes, uncomplicated; Z88.0 Allergy status to penicillin
CPT/HCPCS: 36415; 71045; 80053; 82550; 82553; 83605; 83735; 83880; 84443; 84484; 85025; 93005; 96372; 96374; 99283; J1885